=== PATIENT | male | born 1960 | race Caucasian/White ===

== ENCOUNTER → 2017-02-06 | Outpatient (CLI) | payer OTHER ==
[2017-02-06 15:54] LABS: CHCM 34.7; HCT 44.9 % (39.0-53.0); HDW 2.31; HGB 15.8 gm/dL (13.0-17.5); MCH 32.5 pg (25.0-35.0); MCHC 35.1 g/dL (31.0-37.0); MCV 92.6 fL (80.0-100.0); Mean Platelet Volume 6.8; RBC 4.84 m/uL (4.30-5.90); RDW 13.2 % (11.5-15.5); WBC 10.2 k/uL (3.8-10.6)
[2017-02-06 19:59] LABS: ALT 32 U/L (21-72); AST 32 U/L (17-59); Alkaline Phosphatase 51 U/L (38-126); Anion Gap 11 mmol/L; Blood Urea Nitrogen 14 mg/dL (9-20); Calcium 9.7 mg/dL (8.4-10.2); Carbon Dioxide 24 mmol/L (22-30); Chloride 104 mmol/L (98-107); Cholesterol 171 mg/dL (<200); Glucose 86 mg/dL (74-99); HDL Cholesterol 50 mg/dL (40-60); Non-African American GFR(MDRD) >60 (>60 ml/min/1.73 sqM); Sodium 139 mmol/L (137-145); Total Bilirubin 0.6 mg/dL (0.2-1.3); Total Protein 7.9 g/dL (6.3-8.2); Triglycerides 110 mg/dL (<150)
[2017-02-06 21:08] LABS: Hepatitis B Surface Ag Index 0.07
[2017-02-06 21:25] LABS: Hepatitis C Virus IgG Index 0.05
[2017-02-07 13:53] LABS: HIV-1/HIV-2 Ab Screen NONREAC (NON REAC)
[2017-02-11 09:37] LABS: Hepatitis C Virus IgG Ab Negative (Negative)
== END | disposition home or self-care (01) ==
LOC: LABWHC1 15:34
PROVIDERS: ATTEND Family Medicine
DX: I25.10 Atherosclerotic heart disease of native coronary artery without angina pectoris (principal); F66 Other sexual disorders; N40.1 Benign prostatic hyperplasia with lower urinary tract symptoms; Z12.5 Encounter for screening for malignant neoplasm of prostate
CPT/HCPCS: 86803; 80061; 80053; 86694; 85027; 87340; 87389; 87491; 87591; 86780; 36415; G0103

== ENCOUNTER → 2020-10-31 | Outpatient (CLI) | payer OTHER | END | disposition home or self-care (01) | LOC: RADMRIMAIN 18:14 | PROVIDERS: ATTEND Family Medicine | DX: Z53.9 Procedure and treatment not carried out, unspecified reason (principal) ==

== ENCOUNTER → 2020-11-03 | Outpatient (CLI) | payer OTHER ==
--- NOTE | 2020-11-03 13:54 | XR ---
EXAMINATION TYPE: XR skull limited DATE OF EXAM: 11/03/2020 COMPARISON: None HISTORY: Possible implants in the year TECHNIQUE: 2 view skull FINDINGS: No suspicious radiopaque foreign bodies are identified within the region of the ears. No r adiopaque foreign bodies are evident elsewhere the [id number]. Sella is normal. Paranasal sinuses are clear. Metallic plate is within the anterior to the mandible. IMPRESSION: 1. No suspicious radiopaque foreign body to contraindicate MRI.
--- NOTE | 2020-11-03 22:04 | MR ---
EXAMINATION TYPE: MR shoulder LT wo con DATE OF EXAM: 11/03/2020 COMPARISON: None available. HISTORY: Left shoulder pain, hard to raise over head TECHNIQUE: Multiplanar, multisequence imaging of the left shoulder is performed without contrast. FINDINGS: Rotator Cuff: Low to moderate grade bursal surface partial-thickness tear of the supraspinatus tendon anterior fibers. The subscapularis, infraspinatus and teres minor tendons are grossly intact. Acromioclavicular Joint: Mild to moderate osteoarthritis with mild capsular thickening. Glenohumeral Joint: Mild osteoarthritis. Labrum: Mild degeneration of the glenoid labrum. Biceps Tendon: The long head of biceps is in normal location within bicipital groove. Bone marrow signal: No focal abnormal marrow signal is appreciated. Other: No additional significant abnormality is appreciated. IMPRESSION: Low to moderate grade bursal surface partial-thickness tear of the supraspinatus tendon anterior fibe rs.
== END | disposition home or self-care (01) ==
LOC: RADMRIMAIN 13:26
PROVIDERS: ATTEND Family Medicine
DX: Z01.818 Encounter for other preprocedural examination (principal); M75.112 Incomplete rotator cuff tear or rupture of left shoulder, not specified as traumatic; M24.812 Other specific joint derangements of left shoulder, not elsewhere classified
CPT/HCPCS: 70250

== ENCOUNTER → 2025-04-12 | Outpatient (CLI) | payer SELFPAY ==
[2025-04-13 02:53] LABS: Creatine Kinase 67 U/L (35-257)
== END | disposition home or self-care (01) ==
LOC: LABWHC1 15:58
DX: G72.0 Drug-induced myopathy (principal)
CPT/HCPCS: 36415; 82550; 84443